=== PATIENT | male | born 1970 | race Caucasian/White ===

== ENCOUNTER 2017-04-26 15:52 | Emergency (ER) | payer MEDICARE ==
[~2017-04-26] VITALS: Ht 175.3 cm; Wt 154.2 kg
[2017-04-26] MEDS ORDERED: METFORMIN HCL1000 MG PO (20:06)
[2017-04-26] MEDS ORDERED: GABAPENTIN600 MG PO (20:07)
[2017-04-26] MEDS ORDERED: EFFEXOR XR75 MG PO (20:07)
[2017-04-26] MEDS ORDERED: IBUPROFEN800 MG PO (20:08)
[2017-04-26] MEDS ORDERED: PROMETHAZINE HC25 M1 PO (20:09)
[2017-04-26] MEDS ORDERED: NORCO 5-325 TA1 EACH PO (20:09)
[2017-04-26] MEDS ORDERED: IMITREX50 MG PO (20:10)
[2017-04-26] MEDS ORDERED: MULTI-VITAMIN1 EACH PO (20:11)
[2017-04-26] MEDS ORDERED: VITAMIN D35000 UNIT PO (20:11)
[2017-04-26] MEDS ORDERED: ASPIR-LOW81 MG PO (20:11)
[2017-04-26] MEDS ORDERED: MELATONIN3 MG PO (20:12)
[2017-04-26] MEDS ORDERED: BENADRYL25 MG PO (20:12)
[2017-04-26] MEDS ORDERED: AUGMENTIN 875-1 EACH PO (21:43)
== END 2017-04-26 21:45 | disposition home or self-care (01) ==
LOC: ED 15:52
DX: S61.551A Open bite of right wrist, initial encounter (principal); E11.9 Type 2 diabetes mellitus without complications; E66.9 Obesity, unspecified; G43.909 Migraine, unspecified, not intractable, without status migrainosus; Z79.84 Long term (current) use of oral hypoglycemic drugs; Z79.899 Other long term (current) drug therapy; Z79.82 Long term (current) use of aspirin; W54.0XXA Bitten by dog, initial encounter
CPT/HCPCS: 99283

== ENCOUNTER 2018-09-20 15:46 | Emergency (ER) | payer OTHER, MEDICARE ==
[~2018-09-20] VITALS: Ht 175.3 cm; Wt 150.6 kg
[~2018-09-20 15:46] MED LIST: ASPIR-LOW81 MG PO; AUGMENTIN 875-1 EACH PO; BENADRYL25 MG PO; EFFEXOR XR75 MG PO; GABAPENTIN600 MG PO; IBUPROFEN800 MG PO; IMITREX50 MG PO; MELATONIN3 MG PO; METFORMIN HCL1000 MG PO; MULTI-VITAMIN1 EACH PO; NORCO 5-325 TA1 EACH PO; PROMETHAZINE HC25 M1 PO; VITAMIN D35000 UNIT PO
--- OUTSIDE RECORDS SUMMARY | 2018-09-20 15:48 | XMS ---
PreManage Notification: SUSANNAH WALDEN Security [employer] Events No recent Security Events currently on file CRITERIA MET - PDM CARE PROVIDERS AMANDEEP WATSON Physician Policy Service Coordinator: Medical Current PHONE: Unknown CAROLYNN ROCHA Primary Care Current PHONE: Unknown CAROLYNN ROCHA Primary Care Current PHONE: Unknown WALTER Sun Primary Care Current PHONE: Unknown Amandeep Walter Primary Care Current PHONE: [phone] [facility] Primary Care 04/19/2013-12/18/2015 AT [facility] PHONE: [phone] Manohar has no Care Guidelines for this patient. Flores VISIT COUNT (12 MO.) 1 [facility] TOTAL 1 NOTE: Visits indicate total known visits. ED/UCC VISIT TRACKING (12 MO.) 09/20/2018 15:[address] [facility] [place] TYPE: Emergency COMPLAINT: - L FLANK PAIN INPATIENT VISIT TRACKING (12 MO.) No inpatient visits to display in this time frame [id number]
[2018-09-20] MEDS ORDERED: ZOFRAN4 MG PO (20:08)
== END 2018-09-20 20:24 | disposition home or self-care (01) ==
LOC: ED 15:46
DX: N20.0 Calculus of kidney (principal); E11.9 Type 2 diabetes mellitus without complications; I10 Essential (primary) hypertension; Z87.442 Personal history of urinary calculi; Z79.82 Long term (current) use of aspirin; Z79.84 Long term (current) use of oral hypoglycemic drugs; Z79.899 Other long term (current) drug therapy
CPT/HCPCS: 74176; 81001; 96374; 96375; 99284-25; J1885; J2405

== ENCOUNTER 2022-04-07 21:52 | Emergency (ER) | payer OTHER, MEDICARE ==
[~2022-04-07] VITALS: Ht 175.3 cm; Wt 141.0 kg
[~2022-04-07 21:52] MED LIST changes: +ZOFRAN4 MG PO
[2022-04-07] MEDS ORDERED: VICTOZA 2-0.6 MG/0.1 SUB-Q (22:48)
[2022-04-07] MEDS ORDERED: JARDIANCE10 MG PO (22:48)
[2022-04-07] MEDS ORDERED: ZESTRIL5 MG PO (22:49)
[2022-04-07] MEDS ORDERED: ACTOS15 MG PO (22:49)
[2022-04-08] MEDS ORDERED: MELOXICAM15 MG PO (02:19)
[2022-04-08] MEDS ORDERED: HYDROCODON-ACE1 EA10 PO (02:19)
== END 2022-04-08 02:52 | disposition home or self-care (01) ==
LOC: ED 21:52
DX: E11.9 Type 2 diabetes mellitus without complications (principal); I10 Essential (primary) hypertension; G43.909 Migraine, unspecified, not intractable, without status migrainosus; Z79.899 Other long term (current) drug therapy; Z79.84 Long term (current) use of oral hypoglycemic drugs; Z79.82 Long term (current) use of aspirin; S16.1XXA Strain of muscle, fascia and tendon at neck level, initial encounter; S46.912A Strain of unspecified muscle, fascia and tendon at shoulder and upper arm level, left arm, initial encounter
CPT/HCPCS: 36415; 70450; 71260; 72125; 73560; 74177; 80053; 81001; 85025; 85610; 96374; 99284-25; A9270; J2270; Q9967